=== PATIENT | male | born 1980 | race Caucasian/White ===

== ENCOUNTER 2019-09-13 22:31 | Emergency (ER) | payer OTHER ==
[2019-09-13 23:08] VITALS: BP 121/85; PULSE 65; TEMP 98.2; BMI 29.6
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
[2019-09-13] MEDS ORDERED: ACETAMINOPHEN 325 MG TABLET (FP) PO PRN (23:12)
[2019-09-13] MEDS ORDERED: ACETAMINOPHEN 325 MG TABLET (FP) ONE (23:14)
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
== END 2019-09-14 00:33 | disposition home or self-care (01) ==
LOC: JER 22:31
DX: S29.012A Strain of muscle and tendon of back wall of thorax, initial encounter (principal); S61.219A Laceration without foreign body of unspecified finger without damage to nail, initial encounter; W10.8XXA Fall (on) (from) other stairs and steps, initial encounter; Y93.89 Activity, other specified; Y92.89 Other specified places as the place of occurrence of the external cause; Y99.0 Civilian activity done for income or pay; X02.1XXA Exposure to smoke in controlled fire in building or structure, initial encounter
CPT/HCPCS: 99283-25